=== PATIENT | male | born 1960 | race African-American/Black ===

== ENCOUNTER 2017-03-07 18:19 | Observation (INO) | payer MEDICARE, OTHER ==
[~2017-03-07] VITALS: Ht 167.6 cm; Wt 92.0 kg
[~2017-03-07 18:19] MED LIST: ALBU6.7H INH; AMBI10TA PO; ASPI81TA82 PO; CYCL-36 PO; DEPA125T PO; DICL1GEL TOP; HYDR-3129 PO; LOSA100T PO; METO10 PO; OMEP20CA5 PO; ROBA750T3 PO; SERT100 PO; SIMV20 PO; TERB1%T TOP; VITA-13 PO
[2017-03-07 18:21] VITALS: BP 169/103; PULSE 82; RESP 17; TEMP 97.8; O2SAT 99
[2017-03-07 20:13] VITALS: BP_SYST 173; BP_SYST 175; BP_DIAS 104; BP_DIAS 97; PULSE 70; RESP 17; O2SAT 99
--- NOTE | 2017-03-07 20:23 | PD ---
HPI Chief Complaint: Abdominal Pain Time Seen by Provider: 20:19 Travel History International Travel<30 days: No Contact w/Intl Traveler<30days: No Traveled to known affect area: No History of Present Illness HPI 56-year-old male presents to the emergency department for evaluation of diffuse abdominal pain for 3 days as well as left-sided chest pain that started last night. Patient reports history of appendectomy, but no other abdominal surgeries. He denies having pain like this in the past. He reports vomiting yesterday times one. He also reports 2 episodes of diarrhea today. No blood in his stool. Patient also states that he started with left-sided chest pain that hurts when he pushes on the area since last night. Patient states he does have a history of coronary artery disease and previous cardiac stents approximately 10 years ago. He is a patient of the [facility] and states he will occasionally see a diploma dental assistant. He denies any recent stress testing or cardiac catheterization. Patient denies any recent history of surgery or travel. No hemoptysis. No leg edema. Patient denies any history of DVT or PE. PFSH Past Medical History Arthritis: Yes Asthma: Yes Autoimmune Disease: No Blood Disorders: No Depression: Yes Heart Rhythm Problems: No Cancer: No Cardiac Catheterization: Yes Cardiovascular Problems: Yes (HTN) High Cholesterol: Yes Chemotherapy: No Congestive Heart Failure: Yes Coronary Artery Disease: Yes Diabetes: No Diminished Hearing: Yes (NICOLE HEARING AIDS) Endocrine: No GERD: Yes Genitourinary: No Hepatitis: Yes (C) Hypertension: Yes Musculoskeletal: Yes (CHRONIC BACK/LEG PAIN INJURY 1988) Psychiatric: No Respiratory: Yes Migraines: Yes Radiation Therapy: No Ulcer: Yes Past Surgical History Appendectomy: Yes Coronary Artery Bypass Graft: No Coronary Stent: Yes (X1) Other Surgery: Yes (COLONOSCOPY DONE AT [facility] ) Social History Alcohol Use: Yes Tobacco Use: Yes (occasional) Substance Use: No (HX OF CRACK AND MARIJUANA) Allergies-Medications (Allergen,Severity, Reaction): Coded Allergies: Percocet (Verified Allergy, Severe, ABDOMINAL PAIN, 04/28/16) Reported Meds & Prescriptions Reported Meds & Active Scripts Active Reported Lamisil At Topical (Terbinafine Topical) 1 % [place] 1 Applic TOPICAL TID Ambien (Zolpidem Tartrate) 10 Mg Tab 10 Mg PO HS PRN Zocor (Simvastatin) 20 Mg Tab 20 Mg PO DAILY Zoloft (Sertraline HCl) 100 Mg Tab 100 Mg PO DAILY Prilosec (Omeprazole Magnesium) 20 Mg Tab 20 Mg PO DAILY Losartan (Losartan Potassium) 100 Mg Tab 100 Mg PO DAILY Voltaren (Diclofenac Sodium) 100 Gm Gel..gram. TOPICAL DAILY Vitamin D (Cholecalciferol) 1,000 Unit Tab 1,000 Units PO DAILY Proventil Hfa 6.7 GM Inh (Albuterol Sulfate) 90 Mcg/Act Aer 2 Puff INH Q4-6H PRN Aspirin 81 Mg Chew 81 Mg CHEW DAILY Prilosec 20 mg (Omeprazole) 20 Mg Capcr 20 Mg PO DAILY Zocor (Simvastatin) 20 Mg Tab 20 Mg PO HS Zoloft (Sertraline HCl) 100 Mg Tab 100 Mg PO HS Review of Systems Except as stated in HPI: all other systems reviewed are Neg Physical Exam Narrative GENERAL: Well-nourished, well-developed male patient, ambulatory. Afebrile. SKIN: Focused skin assessment warm/dry. HEAD: Normocephalic. Atraumatic. EYES: No scleral icterus. No injection or drainage. NECK: Supple, trachea midline. No JVD or lymphadenopathy. CARDIOVASCULAR: Regular rate and rhythm without murmurs, gallops, or rubs. RESPIRATORY: Breath sounds equal bilaterally. No accessory muscle use. Lungs sounds clear to auscultation. GASTROINTESTINAL: Abdomen soft and nondistended. Patient has diffuse abdominal tenderness to palpation. MUSCULOSKELETAL: No cyanosis, or edema. Left-sided chest pain is easily reproducible with palpation. BACK: Nontender without obvious deformity. No CVA tenderness. Data Data Last Documented VS Vital Signs Date Time Temp Pulse Resp B/P Pulse Ox O2 Delivery O2 Flow Rate FiO2 03/07/17 20:17 18 03/07/17 20:13 70 173/97 99 03/07/17 18:21 97.8 Orders Electrocardiogram (03/07/17 ) Complete Blood Count With Diff (03/07/17 20:16) Comprehensive Metabolic Panel (03/07/17 20:16) Lipase (03/07/17 20:16) Urinalysis - C+S If Indicated (03/07/17 20:16) Ct Abd/Pel W Iv Contrast(Rout) (03/07/17 20:16) Iv Access Insert/Monitor (03/07/17 20:16) Ecg Monitoring (03/07/17 20:16) Oximetry (03/07/17 20:16) Ondansetron Inj (Zofran Inj) (03/07/17 20:30) Sodium Chloride 0.9% Flush (Ns Flush) (03/07/17 20:30) Ckmb (Isoenzyme) Profile (03/07/17 20:16) Troponin I (03/07/17 20:16) Chest, Single Ap (03/07/17 20:16) Aspirin Chew (Aspirin Chew) (03/07/17 20:30) Sodium Chlorid 0.9% 500 Ml Inj (Ns 500 M (03/07/17 20:30) Morphine Inj (Morphine Inj) (03/07/17 20:30) CKMB (03/07/17 20:35) CKMB% (03/07/17 20:35) Labs Laboratory Tests Test 03/07/17 03/07/17 20:35 20:42 White Blood Count 8.8 TH/MM3 Red Blood Count 5.50 MIL/MM3 Hemoglobin 12.8 GM/DL Hematocrit 39.0 % Mean Corpuscular Volume 71.0 FL Mean Corpuscular Hemoglobin 23.3 PG Mean Corpuscular Hemoglobin 32.9 % Concent Red Cell Distribution Width 16.0 % Platelet Count 213 TH/MM3 Mean Platelet Volume 8.0 FL Neutrophils (%) (Auto) 44.6 % Lymphocytes (%) (Auto) 41.7 % Monocytes (%) (Auto) 10.3 % Eosinophils (%) (Auto) 2.6 % Basophils (%) (Auto) 0.8 % Neutrophils # (Auto) 3.9 TH/MM3 Lymphocytes # (Auto) 3.7 TH/MM3 Monocytes # (Auto) 0.9 TH/MM3 Eosinophils # (Auto) 0.2 TH/MM3 Basophils # (Auto) 0.1 TH/MM3 CBC Comment DIFF FINAL Differential Comment Sodium Level 141 MEQ/L Potassium Level 4.1 MEQ/L Chloride Level 108 MEQ/L Carbon Dioxide Level 25.7 MEQ/L Anion Gap 7 MEQ/L Blood Urea Nitrogen 16 MG/DL Creatinine 1.06 MG/DL Estimat Glomerular Filtration 87 ML/MIN Rate Random Glucose 112 MG/DL Calcium Level 8.6 MG/DL Total Bilirubin 0.2 MG/DL Aspartate Amino Transf 20 U/L (AST/SGOT) Alanine Aminotransferase 25 U/L (ALT/SGPT) Alkaline Phosphatase 57 U/L Total Creatine Kinase 162 U/L Creatine Kinase MB LESS THAN 0.5 NG/ML Troponin I LESS THAN 0.02 NG/ML Total Protein 7.4 GM/DL Albumin 3.5 GM/DL Lipase 230 U/L Urine Color YELLOW Urine Turbidity CLEAR Urine pH 5.5 Urine Specific [place] 1.015 Urine Protein NEG mg/dL Urine Glucose (UA) NEG mg/dL Urine Ketones NEG mg/dL Urine Occult Blood MOD Urine Nitrite NEG Urine Bilirubin NEG Urine Urobilinogen LESS THAN 2.0 MG/DL Urine Leukocyte Esterase SMALL Urine RBC 47 /hpf Urine WBC 3 /hpf Urine Mucus FEW /lpf Microscopic Urinalysis Comment CULT NOT INDICATED MDM Medical Decision Making Medical Screen Exam Complete: Yes Emergency Medical Condition: Yes Medical Record Reviewed: Yes Interpretation(s) chest x-ray - CONCLUSION: No acute disease. Differential Diagnosis Diverticulitis versus gastritis versus cholecystitis versus pancreatitis versus chest wall pain versus ACS Narrative Course 56-year-old male presents to the emergency department for evaluation of abdominal pain for 3 days and chest pain that started last night. Chest pain is worse with movement, palpation. It is easily reproducible. EKG shows sinus rhythm, heart rate 77, no acute ST changes. CBC, CMP, lipase, CK, troponin, UA are ordered and pending. Chest x-ray, CT abdomen/pelvis with IV contrast are ordered and pending. Patient is given normal saline 500 mg, aspirin 162 mg by mouth, morphine 4 mg IV, Zofran 4 mg IV. CBC shows no acute abnormality. CMP shows no acute abnormality. Lipase is 230. CK is 162. Troponin is less than 0.02. UA shows small leukocyte esterase , 47 RBC. Chest x-ray shows no acute disease. CT abdomen/pelvis is pending. Dr. Bobo will resume care and disposition of patient. Usha Kulkarni Mar 07, 2017 20:23
[2017-03-07] MEDS ORDERED: ASPI81CH CHEW (20:25)
[2017-03-07] MEDS ORDERED: LOSA100T PO (20:25)
[2017-03-07] MEDS ORDERED: ALBU6.7H INH (20:25)
[2017-03-07] MEDS ORDERED: ZOCO20TA PO (20:25)
[2017-03-07] MEDS ORDERED: ZOLO100T PO (20:25)
[2017-03-07] MEDS ORDERED: PRIL20TA2 PO (20:25)
[2017-03-07] MEDS ORDERED: LAMI1SPR TOPICAL (20:25)
[2017-03-07] MEDS ORDERED: AMBI10TA PO (20:25)
[2017-03-07] MEDS ORDERED: VOLT1GEL4 TOPICAL (20:25)
[2017-03-07] MEDS ORDERED: VITA100064 PO (20:25)
[2017-03-07] MEDS ORDERED: SODIUM CHLORID 0.9% 500 ML INJ 500 ML IV ONE (20:30)
[2017-03-07] MEDS ORDERED: SODIUM CHLORIDE 0.9% FLUSH 10 ML FLUSH IV FLUSH PRN ×2 (20:30→23:30)
[2017-03-07] MEDS ORDERED: ASPIRIN 81 MG CHEW TAB PO ONE (20:30)
[2017-03-07] MEDS ORDERED: MORPHINE SULFATE 4 MG/ML INJ IV PUSH ONE (20:30)
[2017-03-07] MEDS ORDERED: ONDANSETRON HCL 4 MG/2 ML VIAL IVP ONE (20:30)
[2017-03-07 20:41] LABS: AUTOMATED NEUTROPHIL # 3.9 TH/MM3 (1.8-7.7); BASOPHIL # 0.1 TH/MM3 (0-0.2); BASOPHIL % 0.8 % (0.0-2.0); EOSINOPHIL # 0.2 TH/MM3 (0-0.4); EOSINOPHIL % 2.6 % (0.0-4.0); HEMO FLAGS DIFF FINAL; LYMPH % 41.7 % (9.0-44.0); LYMPHOCYTE # 3.7 TH/MM3 (1.0-4.8); MEAN CORPUSCULAR HEMOGLOBIN 23.3 PG (27.0-34.0); MEAN CORPUSCULAR HGB CONC 32.9 % (32.0-36.0); MONO % 10.3 % (0.0-8.0); NEUT % 44.6 % (16.0-70.0); PLATELET COUNT 213 TH/MM3 (150-450); WHITE BLOOD COUNT 8.8 TH/MM3 (4.0-11.0)
[2017-03-07 21:08] LABS: ALT (GPT) 25 U/L (12-78)
[2017-03-07 21:12] LABS: BLOOD, URINE MOD (NEG); COMMENT (UR) CULT NOT INDICATED; CULTURE IF INDICATED CULT NOT INDICATED; GLUCOSE,URINE NEG (NEG); KETONE, URINE NEG (NEG); MUCUS URINE FEW /lpf (OCC); NITRITE,URINE NEG (NEG); PH, URINE 5.5 (5.0-8.5); URINE COLOR YELLOW (YELLW/STRAW)
[2017-03-07 21:12] LABS: ALKALINE PHOSPHATASE 57 U/L (45-117); CREATINE KINASE 162 U/L (39-308); TOTAL BILIRUBIN ADULT 0.2 MG/DL (0.2-1.0)
[2017-03-07 21:13] LABS: ANION GAP 7 MEQ/L (5-15); AST (GOT) 20 U/L (15-37); BICARBONATE 25.7 MEQ/L (21.0-32.0); BLOOD UREA NITROGEN 16 MG/DL (7-18); CHLORIDE 108 MEQ/L (98-107); GLOMERULAR FILTRATION RATE 87 ML/MIN (>89); POTASSIUM 4.1 MEQ/L (3.5-5.1); SODIUM (NA) 141 MEQ/L (136-145)
--- NOTE | 2017-03-07 21:22 | RADRPT ---
EXAM DATE/TIME: 03/07/2017 20:57 [facility] COMPARISON: CHEST SINGLE AP, December 10, 2015, 22:15. INDICATIONS : Chest pain. MEDICAL HISTORY : None. SURGICAL HISTORY : None. ENCOUNTER: Initial ACUITY: 1 day PAIN SCORE: 7/10 LOCATION: Bilateral chest FINDINGS: A single view of the chest demonstrates the lungs to be symmetrically aerated without evidence of mas s, infiltrate or effusion. The cardiomediastinal contours are unremarkable. Osseous structures are intact. CONCLUSION: No acute disease. Malik Walters MD on March 07, 2017 at 21:19 Board Certified Radiologist. This report was verified electronically.
[2017-03-07 21:25] LABS: CKMB LESS THAN 0.5 NG/ML (0.5-3.6)
[2017-03-07] MEDS ORDERED: IOHEXOL 350 MG/ML 10 ML VIAL (for RAD DIAG) IV ONE (23:05)
--- NOTE | 2017-03-07 23:24 | RADRPT ---
EXAM DATE/TIME: 03/07/2017 23:00 [facility] COMPARISON: No previous studies available for comparison. INDICATIONS : Upper abdominal pain. IV CONTRAST: 90 cc Omnipaque 350 (iohexol) IV ORAL CONTRAST: No oral contrast ingested. RADIATION DOSE: 13.72 CTDIvol (mGy) MEDICAL HISTORY : Cardiovascular disease. Congestive heart failure. Hepatitis C.Hypertension. SURGICAL HISTORY : Appendectomy. ENCOUNTER: Initial ACUITY: 3 days PAIN SCALE: 4/10 LOCATION: Bilateral upper quadrant TECHNIQUE: Volumetric scanning of the abdomen and pelvis was performed. Using automated exposure control and ad justment of the mA and/or kV according to patient size, radiation dose was kept as low as reasonably achievable to obtain optimal diagnostic quality images. DICOM format image data is available electro nically for review and comparison. FINDINGS: LOWER LUNGS: The visualized lower lungs are clear. LIVER: Homogeneous density without lesion. There is no dilation of the biliary tree. No calcified gallston es. SPLEEN: Normal size without lesion. PANCREAS: Within normal limits. KIDNEYS: Normal in size and shape. There is no mass, stone or hydronephrosis the left kidney. Prominent calcu patito upper pole right kidney measures 16 x 9 mm.. ADRENAL GLANDS: Within normal limits. VASCULAR: There is no aortic aneurysm. BOWEL/MESENTERY: The stomach, small bowel, and colon demonstrate no acute abnormality. There is no free intraperitone al air or fluid. ABDOMINAL WALL: Within normal limits. RETROPERITONEUM: There is no lymphadenopathy. BLADDER: No wall thickening or mass. REPRODUCTIVE: Within normal limits. INGUINAL: There is no lymphadenopathy or hernia. MUSCULOSKELETAL: Within normal limits for patient age. CONCLUSION: 1. Nonobstructing calculus upper pole right kidney measures 16 x 9 mm. 2. No acute inflammatory process. Nimesh Sumner MD on March 07, 2017 at 23:20 Board Certified Radiologist. This report was verified electronically.
[2017-03-07] MEDS ORDERED: ONDANSETRON HCL 4 MG/2 ML VIAL IV PRN (23:30)
[2017-03-07] MEDS ORDERED: PANTOPRAZOLE SODIUM 40 MG VIAL IV PUSH ONE (23:30)
--- NOTE | 2017-03-07 23:37 | PD ---
Physical Exam Date Seen by Provider: Mar 07, 2017 Time Seen by Provider: 23:35 Narrative 56-year-old male came to the emergency room with history of chest pain and abdominal pain. The abdominal pain is like a burning sensation he said. He was seen by the nurse practitioner supervising her. She left once her shift was over and sign the case over to me. Blood test results came back to be within normal limit and CT scan shows nephrolithiasis. Patient does have significant coronary artery disease history with stents. His last stress test was 2 and half years ago. I am concerned about this chest pain. Patient was in the emergency room last month with similar chest pain. I would like to admit him to the chest pain center given his risk factor to be ruled out. As this with him and he was agreeable to the plan. I have also ordered IV Protonix. Data Data Last Documented VS Vital Signs Date Time Temp Pulse Resp B/P Pulse Ox O2 Delivery O2 Flow Rate FiO2 03/07/17 20:17 18 03/07/17 20:13 70 173/97 99 03/07/17 18:21 97.8 Orders Electrocardiogram (03/07/17 ) Complete Blood Count With Diff (03/07/17 20:16) Comprehensive Metabolic Panel (03/07/17 20:16) Lipase (03/07/17 20:16) Urinalysis - C+S If Indicated (03/07/17 20:16) Ct Abd/Pel W Iv Contrast(Rout) (03/07/17 20:16) Iv Access Insert/Monitor (03/07/17 20:16) Ecg Monitoring (03/07/17 20:16) Oximetry (03/07/17 20:16) Ondansetron Inj (Zofran Inj) (03/07/17 20:30) Sodium Chloride 0.9% Flush (Ns Flush) (03/07/17 20:30) Ckmb (Isoenzyme) Profile (03/07/17 20:16) Troponin I (03/07/17 20:16) Chest, Single Ap (03/07/17 20:16) Aspirin Chew (Aspirin Chew) (03/07/17 20:30) Sodium Chlorid 0.9% 500 Ml Inj (Ns 500 M (03/07/17 20:30) Morphine Inj (Morphine Inj) (03/07/17 20:30) CKMB (03/07/17 20:35) CKMB% (03/07/17 20:35) Iohexol 350 Inj (Omnipaque 350 Inj) (03/07/17 23:05) Pantoprazole Inj (Protonix Inj) (03/07/17 23:30) Admit Order (Ed Use Only) (03/07/17 23:26) Place In Observation (03/07/17 23:26) Activity Bed Rest With Brp (03/07/17 23:26) Vital Signs (Adult) Q4H (03/07/17 23:26) Cardiac Rhythm .As Directed (03/07/17 23:26) Notify Dr: Other .PRN (03/07/17 23:26) Notify Dr. Parameters (03/07/17:26) Resp Oxygen Nasal Cannula (03/07/17 ) Diet Heart Healthy (03/08/17 Breakfast) Ckmb (Isoenzyme) Profile (03/07/17 23:26) Ckmb (Isoenzyme) Profile (03/08/17 02:26) Troponin I (03/07/17 23:26) Troponin I (03/08/17 02:26) Electrocardiogram (03/07/17 23:26) Electrocardiogram (03/08/17 02:26) ^ Obtain (03/07/17 23:26) Sodium Chloride 0.9% Flush (Ns Flush) (03/07/17 23:30) Sodium Chloride 0.9% Flush (Ns Flush) (03/08/17 09:00) Acetaminophen (Tylenol) (03/07/17 23:30) Ondansetron Inj (Zofran Inj) (03/07/17 23:30) Nitroglycerin Sl (Nitrostat Sl) (03/07/17 23:30) Document Controller / Telemetry ADRIEL.Q8H (03/07/17 23:26) CKMB (03/07/17 23:56) CKMB% (03/07/17 23:56) CKMB (03/08/17 02:45) CKMB% (03/08/17 02:45) Labs Laboratory Tests Test 03/07/17 03/07/17 20:35 20:42 White Blood Count 8.8 TH/MM3 Red Blood Count 5.50 MIL/MM3 Hemoglobin 12.8 GM/DL Hematocrit 39.0 % Mean Corpuscular Volume 71.0 FL Mean Corpuscular Hemoglobin 23.3 PG Mean Corpuscular Hemoglobin 32.9 % Concent Red Cell Distribution Width 16.0 % Platelet Count 213 TH/MM3 Mean Platelet Volume 8.0 FL Neutrophils (%) (Auto) 44.6 % Lymphocytes (%) (Auto) 41.7 % Monocytes (%) (Auto) 10.3 % Eosinophils (%) (Auto) 2.6 % Basophils (%) (Auto) 0.8 % Neutrophils # (Auto) 3.9 TH/MM3 Lymphocytes # (Auto) 3.7 TH/MM3 Monocytes # (Auto) 0.9 TH/MM3 Eosinophils # (Auto) 0.2 TH/MM3 Basophils # (Auto) 0.1 TH/MM3 CBC Comment DIFF FINAL Differential Comment Sodium Level 141 MEQ/L Potassium Level 4.1 MEQ/L Chloride Level 108 MEQ/L Carbon Dioxide Level 25.7 MEQ/L Anion Gap 7 MEQ/L Blood Urea Nitrogen 16 MG/DL Creatinine 1.06 MG/DL Estimat Glomerular Filtration 87 ML/MIN Rate Random Glucose 112 MG/DL Calcium Level 8.6 MG/DL Total Bilirubin 0.2 MG/DL Aspartate Amino Transf 20 U/L (AST/SGOT) Alanine Aminotransferase 25 U/L (ALT/SGPT) Alkaline Phosphatase 57 U/L Total Creatine Kinase 162 U/L Creatine Kinase MB LESS THAN 0.5 NG/ML Troponin I LESS THAN 0.02 NG/ML Total Protein 7.4 GM/DL Albumin 3.5 GM/DL Lipase 230 U/L Urine Color YELLOW Urine Turbidity CLEAR Urine pH 5.5 Urine Specific [place] 1.015 Urine Protein NEG mg/dL Urine Glucose (UA) NEG mg/dL Urine Ketones NEG mg/dL Urine Occult Blood MOD Urine Nitrite NEG Urine Bilirubin NEG Urine Urobilinogen LESS THAN 2.0 MG/DL Urine Leukocyte Esterase SMALL Urine RBC 47 /hpf Urine WBC 3 /hpf Urine Mucus FEW /lpf Microscopic Urinalysis Comment CULT NOT INDICATED MDM Supervised Visit with POLLY: Yes Diagnosis Primary Impression: Chest pain Qualified Code: R07.9 - Chest pain, unspecified type Additional Impression: Nephrolithiasis Admitting Information Admitting Physician Requests: Observation Scripts Amlodipine 5 Mg Tab5 Mg PO DAILY #30 TAB Ref 0 Prov:Javad Morris 03/08/17 Gege Bobo MD Mar 07, 2017 23:37
[2017-03-07 23:48] VITALS: O2SAT 99
[2017-03-08] VITALS (9 sets, daily range): BP systolic 133–172; BP diastolic 83–98; PULSE 59–87; RESP 16–20; TEMP 97.4–98; O2SAT 96–100
[2017-03-08 00:34] LABS: CREATINE KINASE 146 U/L (39-308)
[2017-03-08 00:46] LABS: CKMB 0.8 NG/ML (0.5-3.6)
[2017-03-08] MEDS: ACETAMINOPHEN 500 MG CPLT PO PRN ×2 (00:52→07:33)
[2017-03-08 03:29] LABS: CREATINE KINASE 123 U/L (39-308)
[2017-03-08] MEDS: NITROGLYCERIN 0.4 MG SL 25 TABS/BTL SL PRN ×3 (07:33→07:46)
[2017-03-08] MEDS ORDERED: MORPHINE SULFATE 4 MG/ML INJ IV PRN (08:30)
[2017-03-08] MEDS ORDERED: SODIUM CHLORIDE 0.9% FLUSH 10 ML FLUSH IV FLUSH SCH (09:00)
[2017-03-08] MEDS: NITROGLYCERIN 2% OINT 1 GM PACKET TOPICAL SCH ×2 (09:15→14:53)
[2017-03-08] MEDS: ACETAMINOPHEN/HYDROcodone 325 MG/10 MG TAB PO PRN ×2 (09:16→14:27)
[2017-03-08] MEDS ORDERED: ASPIRIN 325 MG TAB PO SCH (10:00)
[2017-03-08] MEDS ORDERED: cloNIDine HCL 0.1 MG TAB PO PRN (10:00)
--- NOTE | 2017-03-08 10:45 | HHI.HP ---
HPI Primary Care Physician Non-Staff Chief Complaint Chest pain and abdominal pain History of Present Illness This is a 56-year-old male with history of CAD, hypertension, hyperlipidemia that presents with a complaint of chest discomfort and abdominal pain. He states both been there constantly for 3 days. Worsened with movements. He has been little short of breath and nauseous. Denies diaphoresis. He cannot recall the symptoms that he had the left to a stent which she states was about 10 years ago however he cannot recall which hospital or food court team member to perform this. He states he is not followed by food court team member. Cannot recall his last stress test however upon reviewing records he had a nonischemic Lexiscan September 2014 at this facility. Patient is denying diarrhea constipation blood in stool. There but no emesis. His discomfort does not appear to be related to eating or drinking. Denies recent weight changes. Review of Systems General: Patient denies fevers, chills recent, and recent travel HEENT: Patient denies headache, sore throat, difficulty swallowing. Cardiovascular: Has the chest discomfort as mentioned above. Denies sensation of heart beating rapidly or irregularly. No syncope. Denies diaphoresis. Respiratory: He states he was little short of breath. Denies inspirational chest discomfort. Denies coughing wheezing or hemoptysis. GI: He states he was little nauseous yesterday. Complains of generalized abdominal discomfort. Patient denies vomiting, diarrhea, constipation, bloody stools. Musculoskeletal: Patient denies joint pain or edema. Denies calf pain or edema. Neurovascular: Patient denies numbness, tingling, weakness in extremities. Denies headache. Endocrine: Denies polyuria and polydipsia. Hematologic: Denies easy bruising. Skin: Denies rash or itching. Past Family Social History Allergies: Coded Allergies: Percocet (Verified Allergy, Severe, ABDOMINAL PAIN, 04/28/16) Past Medical History Stated history of CAD with reported stent 10 years ago. Hypertension, hyperlipidemia, GERD, chronic back pain, chronic knee pain, tobacco abuse. Denies diabetes. Past Surgical History Multiple knee surgeries. Stated cardiac catheterization with stent placement about 10 years ago. Appendectomy. Reported Medications Reported Meds & Active Scripts Active Reported Lamisil At Topical (Terbinafine Topical) 1 % [place] 1 Applic TOPICAL TID Ambien (Zolpidem Tartrate) 10 Mg Tab 10 Mg PO HS PRN Zocor (Simvastatin) 20 Mg Tab 20 Mg PO DAILY Zoloft (Sertraline HCl) 100 Mg Tab 100 Mg PO DAILY Prilosec (Omeprazole Magnesium) 20 Mg Tab 20 Mg PO DAILY Losartan (Losartan Potassium) 100 Mg Tab 100 Mg PO DAILY Voltaren (Diclofenac Sodium) 100 Gm Gel..gram. TOPICAL DAILY Vitamin D (Cholecalciferol) 1,000 Unit Tab 1,000 Units PO DAILY Proventil Hfa 6.7 GM Inh (Albuterol Sulfate) 90 Mcg/Act Aer 2 Puff INH Q4-6H PRN Aspirin 81 Mg Chew 81 Mg CHEW DAILY Prilosec 20 mg (Omeprazole) 20 Mg Capcr 20 Mg PO DAILY Zocor (Simvastatin) 20 Mg Tab 20 Mg PO HS Zoloft (Sertraline HCl) 100 Mg Tab 100 Mg PO HS Active Ordered Medications Current Medications Medications (Trade) Dose Ordered Sig/Basim Route Start Time Stop Time Status Last Admin (NS Flush) 2 ml UNSCH PRN IV FLUSH 03/07/17 23:30 (NS Flush) 2 ml BID IV FLUSH 03/08/17 09:00 03/08/17 09:16 (Tylenol) 500 mg Q4H PRN PO 03/07/17 23:30 03/08/17 07:33 (Zofran Inj) 4 mg Q6H PRN IV 03/07/17 23:30 (Nitrostat Sl) 0.4 mg Q5M PRN SL 03/07/17 23:30 03/08/17 07:46 (Morphine Inj) 4 mg Q4HR PRN IV 03/08/17 08:30 (Nitroglycerin 2% Oint) 1 inch Q6H TOPICAL 03/08/17 09:00 ([place] 10-325 Mg) 1 tab Q4H PRN PO 03/08/17 09:15 03/08/17 09:16 (Aspirin) 325 mg DAILY PO 03/08/17 10:00 (Catapres) 0.1 mg Q4H PRN PO 03/08/17 10:00 Family History States that his mother had CAD. Social History Patient states he smokes one quarter pack of cigarettes daily for 25 years. He denies illicit drug use however we have toxicology reports in her records revealing cocaine in the past. He states he has 5-6 beers on weekends. Physical Exam Vital Signs Vital Signs Date Time Temp Pulse Resp B/P Pulse Ox O2 Delivery O2 Flow Rate FiO2 03/08/17 08:48 98.0 61 20 147/85 97 03/08/17 08:24 97.4 64 18 133/83 97 03/08/17 04:19 98.0 79 18 151/87 96 03/08/17 02:20 78 03/08/17 00:02 62 18 172/96 100 03/08/17 00:00 98.0 87 18 161/84 97 03/07/17 23:48 99 03/07/17 20:17 18 03/07/17 20:13 70 17 173/97 99 03/07/17 18:21 97.8 82 17 169/103 99 Physical Exam GENERAL: This is a well-nourished, well-developed patient, in no apparent distress. Patient speaks in clear complete sentences. Patient is pleasant. HEENT: Head is atraumatic and normocephalic. Neck is supple without lymphadenopathy and trachea is midline. No JVD or carotid bruits. CARDIOVASCULAR: Regular rate and rhythm without murmurs, gallops, or rubs. RESPIRATORY: Clear to auscultation. Breath sounds equal bilaterally. No wheezes , rales, or rhonchi. Chest wall is tender with even lightly palpating the area bringing back the discomfort that he has been having. No use of accessory muscles. GASTROINTESTINAL: Abdomen is nontender, nondistended. Abdomen soft. No obvious pulsatile mass or bruit. No CVA tenderness. Strong femoral pulses bilaterally. Normal bowel sounds in all quadrants. MUSCULOSKELETAL: Patient is moving upper and lower extremities freely. No calf tenderness or edema, no Homans sign. Strong pulses in upper and lower extremities. NEUROLOGICAL: Patient is alert and oriented. Cranial nerves 2-12 are grossly intact. No focal deficits and speech is clear. SKIN: No rash and turgor is normal. Laboratory Laboratory Tests Test 03/07/17 03/07/17 03/07/17 03/08/17 20:35 20:42 23:56 02:45 White Blood Count 8.8 Red Blood Count 5.50 Hemoglobin 12.8 Hematocrit 39.0 Mean Corpuscular Volume 71.0 Mean Corpuscular Hemoglobin 23.3 Mean Corpuscular Hemoglobin 32.9 Concent Red Cell Distribution Width 16.0 Platelet Count 213 Mean Platelet Volume 8.0 Neutrophils (%) (Auto) 44.6 Lymphocytes (%) (Auto) 41.7 Monocytes (%) (Auto) 10.3 Eosinophils (%) (Auto) 2.6 Basophils (%) (Auto) 0.8 Neutrophils # (Auto) 3.9 Lymphocytes # (Auto) 3.7 Monocytes # (Auto) 0.9 Eosinophils # (Auto) 0.2 Basophils # (Auto) 0.1 CBC Comment DIFF FINAL Differential Comment Sodium Level 141 Potassium Level 4.1 Chloride Level 108 Carbon Dioxide Level 25.7 Anion Gap 7 Blood Urea Nitrogen 16 Creatinine 1.06 Estimat Glomerular Filtration 87 Rate Random Glucose 112 Calcium Level 8.6 Total Bilirubin 0.2 Aspartate Amino Transf 20 (AST/SGOT) Alanine Aminotransferase 25 (ALT/SGPT) Alkaline Phosphatase 57 Total Creatine Kinase 162 146 123 Creatine Kinase MB LESS THAN 0.5 0.8 1.0 Troponin I LESS THAN 0.02 LESS THAN 0.02 LESS THAN 0.02 Total Protein 7.4 Albumin 3.5 Lipase 230 Urine Color YELLOW Urine Turbidity CLEAR Urine pH 5.5 Urine Specific [place] 1.015 Urine Protein NEG Urine Glucose (UA) NEG Urine Ketones NEG Urine Occult Blood MOD Urine Nitrite NEG Urine Bilirubin NEG Urine Urobilinogen LESS THAN 2.0 Urine Leukocyte Esterase SMALL Urine RBC 47 Urine WBC 3 Urine Mucus FEW Microscopic Urinalysis Comment CULT NOT INDICATED Result Diagram: 03/07/17203403/07/172034 Imaging Last 48 hours Impressions Chest X-Ray 03/07/172015 Signed Impressions: Service Date/Time: Tuesday, March 07, 2017 20:57 - CONCLUSION: No acute disease. Malik Walters MD Abdomen/Pelvis CT 03/07/172015 Signed Impressions: Service Date/Time: Tuesday, March 07, 2017 23:00 - CONCLUSION: 1. Nonobstructing calculus upper pole right kidney measures 16 x 9 mm. 2. No acute inflammatory process. Nimesh Sumner MD Course EKGs have sinus rhythm without significant ST segment depressions or elevations. Assessment and Plan Assessment and Plan * Chest pain: Patient has had serial cardiac enzymes and EKGs for ruling out purposes. He will be seen by Dr. Chery in the chest pain center. He will undergo a Lexiscan. He'll be discharged home if Lexiscan was nonischemic. * Abdominal pain: CT of the abdomen and pelvis in the ED did not reveal anything acute. He should follow-up with his primary care physician. * CAD: Patient states he has history of a stent. He should follow-up with a food court team member locally. * Hypertension: Continue current medication. * Hyperlipidemia: Continue current medication. * GERD: Continue current medication. * Chronic knee and back pain: Continue current medication. * Tobacco abuse: Patient has been counseled on the importance of smoking cessation. Patient is stable this time. He is agreeable to this plan. Javad Morris Mar 08, 2017 10:45
[2017-03-08] MEDS ORDERED: REGADENOSON INJ 0.4 MG/5 ML SYR ONE (11:16)
[2017-03-08] MEDS ORDERED: POTA10CA PO (12:30)
[2017-03-08] MEDS ORDERED: CITA20TA4 PO (12:30)
[2017-03-08] MEDS ORDERED: HYDR-3583 PO (12:30)
[2017-03-08] MEDS ORDERED: PENI500T PO (12:30)
[2017-03-08] MEDS ORDERED: TAMS0.4C4 PO (12:30)
[2017-03-08] MEDS ORDERED: SOMA350T PO (12:30)
--- NOTE | 2017-03-08 12:38 | RADRPT ---
EXAM DATE/TIME: 03/08/2017 10:35 [facility] COMPARISON: MYOCARDIAL PERF PHARM SPECT, GATED W/EF, September 28, 2014, 9:05. INDICATIONS : Left sided chest pain for three days. Angina. DOSE: 25.7 mCi Tc99m Myoview at stress. 8.1 mCi Tc99m Myoview at rest. 0.4 mg Lexiscan STRESS SYMPTOMS: Shortness of breath. EJECTION FRACTION: 52% MEDICAL HISTORY : Cardiovascular disease. Hepatitis C. SURGICAL HISTORY : Coronary artery stent. Appendectomy. ENCOUNTER: Initial ACUITY: 3 days PAIN SCALE: 5/10 LOCATION: Left chest TECHNIQUE: The patient underwent pharmacologic stress with infusion of prescribed dose. Continuous ECG tracing was monitored during stress. Gated SPECT imaging was performed after stress and conventional SPECT i maging was performed at rest. The examination was performed on a SPECT/CT scanner, both attenuation and non-corrected datasets were reviewed. FINDINGS: DISTRIBUTION: The maximum perfused segment at stress is in the lateral wall. PERFUSION STUDY: The pattern of perfusion at stress is within normal limits. GATED STUDY: There is intact wall motion and thickening without hypokinetic or dyskinetic segments. CONCLUSION: Unremarkable myocardial perfusion examination. RISK CATEGORY: Low Marcell Arambula MD on March 08, 2017 at 12:35 Board Certified Radiologist. This report was verified electronically.
[2017-03-08] MEDS ORDERED: PRAVASTATIN SOD 40 MG TAB PO SCH (12:45)
[2017-03-08] MEDS ORDERED: CARISOPRODOL 350 MG TAB PO PRN (12:45)
[2017-03-08] MEDS ORDERED: ZOLPIDEM TARTRATE 10 MG TAB PO PRN (12:45)
[2017-03-08] MEDS ORDERED: CITALOPRAM HYDROBROMIDE 20 MG TAB PO SCH (12:45)
[2017-03-08] MEDS ORDERED: TERBINAFINE 1% TOPICAL (13:15)
--- NOTE | 2017-03-08 13:39 | EKG ---
Date Performed: 03/07/2017 Time Performed: 18:30:27 PTAGE: 56 years EKG: Sinus rhythm NORMAL ECG PREVIOUS TRACING : 12/10/2015 22.19 DOCTOR: Tereso Chery Interpretating Date/Time 03/08/2017 13:38:15
--- NOTE | 2017-03-08 13:48 | EKG ---
Date Performed: 03/08/2017 Time Performed: 00:01:46 PTAGE: 56 years EKG: SINUS BRADYCARDIA NORMAL ECG EXCEPT FOR RATE PREVIOUS TRACING : 03/07/2017 18.30 DOCTOR: Tereso Chery Interpretating Date/Time 03/08/2017 13:46:25
--- NOTE | 2017-03-08 13:50 | EKG ---
Date Performed: 03/08/2017 Time Performed: 02:43:09 PTAGE: 56 years EKG: SINUS BRADYCARDIA WITH SINUS ARRHYTHMIA NORMAL ECG EXCEPT FOR RATE PREVIOUS TRACING : 03/08/2017 00.01 DOCTOR: Tereso Chery Interpretating Date/Time 03/08/2017 13:49:30
--- NOTE | 2017-03-08 13:52 | EKG ---
Date Performed: 03/08/2017 Time Performed: 07:56:41 PTAGE: 56 years EKG: SINUS BRADYCARDIA NORMAL ECG EXCEPT FOR RATE INTERPRETATION BASED ON A DEFAULT AGE OF 40 YE ARS NO PREVIOUS TRACING DOCTOR: Tereso Chery Interpretating Date/Time 03/08/2017 13:51:11
--- NOTE | 2017-03-08 13:59 | HHI.DCPOC ---
Discharge Care Plan Diagnosis: (1) Chest pain (2) Hypertension (3) Hyperlipidemia (4) CAD (coronary artery disease) (5) Tobacco abuse (6) Chronic knee pain (7) Chronic back pain (8) Nephrolithiasis Goals to Promote Your Health * To prevent worsening of your condition and complications * To maintain your health at the optimal level Directions to Meet Your Goals Take your medications as prescribed Follow your dietary instruction Follow activity as directed Keep your appointments as scheduled Take your immunizations and boosters as scheduled If your symptoms worsen call your PCP, if no PCP go to Urgent Care Center or Emergency Room Smoking is Dangerous to Your Health. Avoid second hand smoke Call the 24-hour hour crisis hotline for domestic abuse at Javad Morris Mar 08, 2017 13:58
[2017-03-08] MEDS ORDERED: PANTOPRAZOLE SOD 20 MG DELAYED RELEASE TAB PO SCH (14:00)
[2017-03-08] MEDS ORDERED: LOSARTAN 50 MG TAB PO SCH (14:00)
--- NOTE | 2017-03-08 14:09 | TR ---
Date Performed: 03/08/2017 Time Performed: 11:28:08 DOCTOR: Tereso Chery DRUG LIST: LOSARTAN ASA NITRO CLINICAL HISTORY: CHEST PAIN CHEST PAIN REASON FOR TEST: REASON FOR ENDING: OBSERVATION: CONCLUSION: Lexiscan stress test was performed under standard four minute protocol. Radionuclide was injected one minute prior to ending the test. The patient was asymptomatic. No electrocardiograp hic abnormalities were present to suggest ischemia. Recovery was quick and uneventful. Nuclear imagin g and interpretation are pending. COMMENTS:
[2017-03-08] MEDS ORDERED: AMLO5TAB2 PO (16:54)
[2017-03-08] MEDS ORDERED: TAMSULOSIN HCL 0.4 MG CAP PO SCH (21:00)
[2017-03-09] MEDS ORDERED: POTASSIUM CHLORIDE 10 MEQ CAP PO SCH (09:00)
== END 2017-03-08 18:20 | disposition home or self-care (01) ==
LOC: NEPE 18:19 → NEDA 23:33 → NEPGCP 03-08 00:39
PROVIDERS: ADMIT Family Medicine; ATTEND Family Medicine
DX: R07.9 Chest pain, unspecified (principal); E78.5 Hyperlipidemia, unspecified; I11.0 Hypertensive heart disease with heart failure; I50.9 Heart failure, unspecified; I25.10 Atherosclerotic heart disease of native coronary artery without angina pectoris; R10.9 Unspecified abdominal pain; R19.7 Diarrhea, unspecified; J45.909 Unspecified asthma, uncomplicated; E78.00 Pure hypercholesterolemia, unspecified; K21.9 Gastro-esophageal reflux disease without esophagitis; M19.90 Unspecified osteoarthritis, unspecified site; M54.9 Dorsalgia, unspecified; Z95.5 Presence of coronary angioplasty implant and graft; M25.569 Pain in unspecified knee; N20.0 Calculus of kidney; G89.29 Other chronic pain; R11.0 Nausea; F17.200 Nicotine dependence, unspecified, uncomplicated
CPT/HCPCS: 71010; 74177; 78452; 80053; 81001; 82550; 82552; 83690; 84484; 85025; 93005; 93017; 96374; 96375; 99285; A9502; C9113; G0378; J2270; J2405; J2785; J7040; Q9967

== ENCOUNTER 2017-03-14 10:32 | Emergency (ER) | payer MEDICARE, OTHER ==
[~2017-03-14] VITALS: Ht 167.6 cm; Wt 91.0 kg
[~2017-03-14 10:32] MED LIST changes: +AMLO5TAB2 PO; +ASPI81CH CHEW; -ASPI81TA82 PO; +CITA20TA4 PO; -CYCL-36 PO; -DEPA125T PO; -DICL1GEL TOP; -HYDR-3129 PO; +HYDR-3583 PO; +LAMI1SPR TOPICAL; -METO10 PO; -OMEP20CA5 PO; +PENI500T PO; +POTA10CA PO; +PRIL20TA2 PO; -ROBA750T3 PO; -SERT100 PO; -SIMV20 PO; +SOMA350T PO; +TAMS0.4C4 PO; -TERB1%T TOP; -VITA-13 PO; +VITA100064 PO; +VOLT1GEL4 TOPICAL; +ZOCO20TA PO
[2017-03-14 10:34] VITALS: BP 178/97; PULSE 78; RESP 20; TEMP 97.7; O2SAT 95
--- NOTE | 2017-03-14 11:29 | PD ---
HPI Chief Complaint: Nosebleed Time Seen by Provider: 11:29 Travel History International Travel<30 days: No Contact w/Intl Traveler<30days: No Traveled to known affect area: No History of Present Illness HPI 56-year-old male with history of CAD, AR, with stent placement, states he is not on any anticoagulants, remote history of crack cocaine use, presents to emergency department for evaluation of epistaxis from the left nares that lasted approximately 5 minutes this morning and resolved on its own. He also has a mild frontal headache. No thunderclap or acute onset. States that he woke up with this. Denies any focal deficits or weakness. No nausea or vomiting. Patient was hospitalized and underwent perfusion scan on March 07 that was negative and low risk of cardiac event. Patient denies any recent crack cocaine use. Denies any head trauma. No recent illnesses, fever, or chills. No other symptoms to report. PFSH Past Medical History Hx Anticoagulant Therapy: No Arthritis: Yes Asthma: Yes Autoimmune Disease: No Blood Disorders: No Depression: Yes Heart Rhythm Problems: No Cancer: No Cardiac Catheterization: Yes Cardiovascular Problems: Yes (Stents) High Cholesterol: Yes Chemotherapy: No Congestive Heart Failure: Yes Cerebrovascular Accident: No Coronary Artery Disease: Yes Diabetes: No Diminished Hearing: Yes (NICOLE HEARING AIDS) Endocrine: No GERD: Yes Genitourinary: No Hepatitis: Yes (C) Hypertension: Yes Musculoskeletal: Yes (CHRONIC BACK/LEG PAIN INJURY 1988) Psychiatric: No Respiratory: No Migraines: Yes Radiation Therapy: No Ulcer: Yes Past Surgical History Appendectomy: Yes Coronary Artery Bypass Graft: No Coronary Stent: Yes (X1) Other Surgery: Yes (COLONOSCOPY DONE AT [facility] ) Family History Family Myocardial Infarction: Yes Social History Alcohol Use: Yes Tobacco Use: Yes (occasional) Substance Use: No (HX OF CRACK AND MARIJUANA) Allergies-Medications (Allergen,Severity, Reaction): Coded Allergies: Percocet (Verified Allergy, Severe, ABDOMINAL PAIN, 03/14/17) Reported Meds & Prescriptions Reported Meds & Active Scripts Active Amlodipine (Amlodipine Besylate) 5 Mg Tab 5 Mg PO DAILY Reported Hydrocodone-Acetaminophen 10-325 mg Tab 1 Tab PO Q6H PRN Soma (Carisoprodol) 350 Mg Tab 350 Mg PO TID PRN Citalopram (Citalopram Hydrobromide) 20 Mg Tab 20 Mg PO DAILY Tamsulosin (Tamsulosin HCl) 0.4 Mg Cap 0.4 Mg PO HS Potassium Chloride ER (Potassium Chloride) 10 Meq Cap 10 Meq PO DAILY Lamisil At Topical (Terbinafine Topical) 1 % [place] 1 Applic TOPICAL TID Ambien (Zolpidem Tartrate) 10 Mg Tab 10 Mg PO HS PRN Zocor (Simvastatin) 20 Mg Tab 20 Mg PO DAILY Prilosec (Omeprazole Magnesium) 20 Mg Tab 20 Mg PO DAILY Losartan (Losartan Potassium) 100 Mg Tab 100 Mg PO DAILY Voltaren (Diclofenac Sodium) 100 Gm Gel..gram. TOPICAL DAILY Vitamin D (Cholecalciferol) 1,000 Unit Tab 1,000 Units PO DAILY Proventil Hfa 6.7 GM Inh (Albuterol Sulfate) 90 Mcg/Act Aer 2 Puff INH Q4-6H PRN Aspirin 81 Mg Chew 81 Mg CHEW DAILY Review of Systems Except as stated in HPI: all other systems reviewed are Neg Physical Exam Narrative GENERAL: Well-nourished, ambulatory male patient, in no acute distress SKIN: Focused skin assessment warm/dry. HEAD: Atraumatic. Normocephalic. Mild tenderness to palpation over the frontal sinuses. EYES: Pupils equal and round. No scleral icterus. No injection or drainage. ENT: No nasal bleeding or discharge. Mucous membranes pink and moist. Turbinates are inflamed bilaterally. The left turbinate appears friable. There is no active bleeding. No hematoma. There is slight tonsillar edema on the right when compared to the left. Postnasal drip is noted. NECK: Trachea midline. No JVD. CARDIOVASCULAR: Regular rate and rhythm. 2/6 systolic murmur appreciated. RESPIRATORY: No accessory muscle use. Clear to auscultation. Breath sounds equal bilaterally. GASTROINTESTINAL: Abdomen soft, non-tender, nondistended. Hepatic and splenic margins not palpable. MUSCULOSKELETAL: No obvious deformities. No clubbing. No cyanosis. No edema. NEUROLOGICAL: Awake and alert. No obvious cranial nerve deficits. Motor grossly within normal limits. Normal speech. Data Data Last Documented VS Vital Signs Date Time Temp Pulse Resp B/P Pulse Ox O2 Delivery O2 Flow Rate FiO2 03/14/17 11:32 73 22 177/96 99 Room Air 03/14/17 10:34 97.7 Orders Iv Access Insert/Monitor (03/14/17 11:27) Complete Blood Count With Diff (7/1/17 11:27) Comprehensive Metabolic Panel (03/14/17 11:27) Coag Profile (03/14/17 11:27) Ct Brain W/O Iv Contrast(Rout) (03/14/17 ) Ecg Monitoring (03/14/17 11:27) Oximetry (03/14/17 11:27) Electrocardiogram (03/14/17 ) Acetaminophen (Tylenol) (03/14/17 12:00) Ketorolac Inj (Toradol Inj) (03/14/17 12:45) Labs Laboratory Tests Test 03/14/17 11:35 White Blood Count 5.9 TH/MM3 Red Blood Count 5.56 MIL/MM3 Hemoglobin 12.7 GM/DL Hematocrit 39.2 % Mean Corpuscular Volume 70.5 FL Mean Corpuscular Hemoglobin 22.9 PG Mean Corpuscular Hemoglobin 32.5 % Concent Red Cell Distribution Width 16.0 % Platelet Count 222 TH/MM3 Mean Platelet Volume 7.8 FL Neutrophils (%) (Auto) 48.1 % Lymphocytes (%) (Auto) 38.7 % Monocytes (%) (Auto) 10.2 % Eosinophils (%) (Auto) 2.4 % Basophils (%) (Auto) 0.6 % Neutrophils # (Auto) 2.9 TH/MM3 Lymphocytes # (Auto) 2.3 TH/MM3 Monocytes # (Auto) 0.6 TH/MM3 Eosinophils # (Auto) 0.1 TH/MM3 Basophils # (Auto) 0.0 TH/MM3 CBC Comment DIFF FINAL Differential Comment Prothrombin Time 11.2 SEC Prothromb Time International 1.0 RATIO Ratio Activated Partial 25.7 SEC Thromboplast Time Sodium Level 140 MEQ/L Potassium Level 3.9 MEQ/L Chloride Level 108 MEQ/L Carbon Dioxide Level 25.4 MEQ/L Anion Gap 7 MEQ/L Blood Urea Nitrogen 13 MG/DL Creatinine 0.93 MG/DL Estimat Glomerular Filtration 101 ML/MIN Rate Random Glucose 128 MG/DL Calcium Level 8.8 MG/DL Total Bilirubin 0.2 MG/DL Aspartate Amino Transf 17 U/L (AST/SGOT) Alanine Aminotransferase 26 U/L (ALT/SGPT) Alkaline Phosphatase 62 U/L Total Protein 7.5 GM/DL Albumin 3.6 GM/DL MDM Medical Decision Making Medical Screen Exam Complete: Yes Emergency Medical Condition: Yes Medical Record Reviewed: Yes Differential Diagnosis Sinusitis bacterial versus viral versus versus hypocoagulability versus nasal trauma versus electrolyte abnormality Narrative Course 56-year-old male presents to emergency department for evaluation. Patient appears well and without distress. He does have inflamed nasal turbinates bilateral. No active epistaxis at this time. Vital signs are stable. CBC and CMP are without acute concern. INR is 1. CT imaging of the brain is without acute intracranial abnormality. Patient has no focal deficits or weakness. He has not had any epistaxis since being in the emergency department. He is treated for pain. I discussed the patient denies any physician. Patient will be discharged at this time to follow-up with a primary care provider. He agrees to return immediately with any acute worsening of symptoms. Diagnosis Primary Impression: Left-sided epistaxis Additional Impressions: Rhinosinusitis Frontal headache Referrals: Ear / Nose / Throat Specialist Primary Care Physician Patient Instructions: General Instructions, Nosebleed (ED), Rhinosinusitis (ED) Additional Instructions: Do not pick your nose No foreign bodies in your nose [id number] normal saline nasal spray as directed on the package [id number] antihistamine such as Benadryl and or zyrtec as instructed on package Follow-up with a primary care provider Return immediately with any acute worsening of symptoms Disposition: 01 DISCHARGE HOME Condition: Stable Roula Galarza Mar 14, 2017 11:29
[2017-03-14 11:32] VITALS: BP 177/96; PULSE 73; RESP 22; O2SAT 99
[2017-03-14 11:48] LABS: AUTOMATED NEUTROPHIL # 2.9 TH/MM3 (1.8-7.7); BASOPHIL % 0.6 % (0.0-2.0); EOSINOPHIL # 0.1 TH/MM3 (0-0.4); EOSINOPHIL % 2.4 % (0.0-4.0); HEMATOCRIT 39.2 % (39.0-51.0); HEMO FLAGS DIFF FINAL; LYMPH % 38.7 % (9.0-44.0); LYMPHOCYTE # 2.3 TH/MM3 (1.0-4.8); MEAN CELL VOLUME 70.5 FL (80.0-100.0); MEAN CORPUSCULAR HEMOGLOBIN 22.9 PG (27.0-34.0); MEAN CORPUSCULAR HGB CONC 32.5 % (32.0-36.0); MONO % 10.2 % (0.0-8.0); NEUT % 48.1 % (16.0-70.0); PLATELET COUNT 222 TH/MM3 (150-450); RED BLOOD COUNT 5.56 MIL/MM3 (4.50-5.90); WHITE BLOOD COUNT 5.9 TH/MM3 (4.0-11.0)
[2017-03-14 11:57] LABS: APTT (PATIENT) 25.7 SEC (24.3-30.1); PROTHROMBIN TIME - PATIENT 11.2 SEC (9.8-11.6)
[2017-03-14] MEDS ORDERED: ACETAMINOPHEN 325 MG TAB PO ONE (12:00)
[2017-03-14 12:08] LABS: ALT (GPT) 26 U/L (12-78); ANION GAP 7 MEQ/L (5-15); AST (GOT) 17 U/L (15-37); BICARBONATE 25.4 MEQ/L (21.0-32.0); BLOOD UREA NITROGEN 13 MG/DL (7-18); CHLORIDE 108 MEQ/L (98-107); GLOMERULAR FILTRATION RATE 101 ML/MIN (>89); POTASSIUM 3.9 MEQ/L (3.5-5.1); SODIUM (NA) 140 MEQ/L (136-145)
[2017-03-14 12:10] LABS: ALKALINE PHOSPHATASE 62 U/L (45-117); TOTAL BILIRUBIN ADULT 0.2 MG/DL (0.2-1.0)
--- NOTE | 2017-03-14 12:31 | RADRPT ---
EXAM DATE/TIME: 03/14/2017 12:13 [facility] COMPARISON: CT BRAIN W/O CONTRAST, April 28, 2016, 19:37. INDICATIONS : Migraine headache and nose bleed. RADIATION DOSE: 56.35 CTDIvol (mGy) MEDICAL HISTORY : Hepatitis C. Cardiovascular disease Hypertension. SURGICAL HISTORY : Appendectomy. ENCOUNTER: Initial ACUITY: 1 day PAIN SCALE: 6/10 LOCATION: Bilateral frontal TECHNIQUE: Multiple contiguous axial images were obtained of the head. Using automated exposure control and adj ustment of the mA and/or kV according to patient size, radiation dose was kept as low as reasonably a chievable to obtain optimal diagnostic quality images. DICOM format image data is available electro nically for review and comparison. FINDINGS: There is mild line loss which is stable. No hemorrhage, infarct, or mass. Osseous structures are inta ct. CONCLUSION: No acute disease. Tio Falcon MD on March 14, 2017 at 12:27 Board Certified Radiologist. This report was verified electronically.
[2017-03-14] MEDS ORDERED: KETOROLAC TROMETHAMINE 30 MG/ML (IVP) VIAL IV PUSH ONE (12:45)
--- NOTE | 2017-03-15 13:50 | EKG ---
Date Performed: 03/14/2017 Time Performed: 11:45:34 PTAGE: 56 years EKG: Sinus rhythm MINIMAL VOLTAGE CRITERIA FOR LVH, CONSIDER NORMAL VARIANT NONSPECIFIC T-WAVE ABNORMALITY Compared to previous tracing, the nonspecific anterior T wave changes are new BORDERLINE ECG PREVIOUS TRACING : 03/08/2017 07.56 DOCTOR: Maryanne Sr Interpretating Date/Time 03/15/2017 13:49:33
== END 2017-03-14 13:35 | disposition home or self-care (01) ==
LOC: NEPC 10:32
DX: R04.0 Epistaxis (principal); J01.10 Acute frontal sinusitis, unspecified; R51 Headache; R94.31 Abnormal electrocardiogram [ECG] [EKG]; I10 Essential (primary) hypertension
CPT/HCPCS: 70450; 80053; 85025; 85610; 85730; 93005; 96374; 99285; J1885